=== PATIENT | female | born 1930 | race African-American/Black ===

== ENCOUNTER → 2017-02-28 | Outpatient (CLI) | payer MEDICARE, BC ==
[~2017-02-28] MED LIST: ASPI-1035 PO; ATEN50TA PO; ATOR80TA PO; BARIUM SULFATE 450ML ORAL SUSP ONE; BARIUM SULFATE(VOLUMEN) 450 ML ORAL.SUSP ONE; CA C1TAB70 PO; LISI-604 PO; TAP5 PO
== END | disposition home or self-care (01) ==
LOC: RAD 06:51
PROVIDERS: ATTEND Internal Medicine Gastroenterology
DX: K22.4 Dyskinesia of esophagus (principal); K21.0 Gastro-esophageal reflux disease with esophagitis
CPT/HCPCS: 74246